=== PATIENT | male | born 1950 | race Caucasian/White ===

== ENCOUNTER 2023-09-09 12:01 | Emergency (ER) | payer MEDICARE, SELFPAY ==
[2023-09-09 12:10] VITALS: BP 120/64; PULSE 60; RESP 16; TEMP 36.3; O2SAT 99; BMI 27.6
--- NOTE | 2023-09-09 12:14 | DI.RAD.S_ITS ---
PROCEDURE: XR TIBIA FIBULA LT 2V INDICATIONS: fall, L sanchez on large rock, hematoma, LE swelling TECHNIQUE: 2 views of the tibia and fibula were acquired. COMPARISON: None. FINDINGS: Bones: No fractures or dislocations. No suspicious bony lesions. Soft tissues: No suspicious soft tissue calcifications or masses. IMPRESSION: No acute bony abnormality. Dictated by: Tenzin Pineda M.D. on 09/09/2023 at 12:54 Approved by: Tenzin Pineda M.D. on 09/09/2023 at 12:54
--- NOTE | 2023-09-09 13:28 | ED_ITS ---
HPI - Extremity Injury (Lower) <Maria Del Carmen Orozco PA-C - Last Filed: 09/09/23 13:37> General Chief Complaint: Extremity Injury, Lower Stated Complaint: L leg hematoma on sanchez Time Seen by Provider: 09/09/23 13:06 History of Present Illness HPI Narrative: Patient is a 73-year-old male who presents with a hematoma to the left anterior sanchez. He reports he was fishing in [place] last week when he slipped and his sanchez hit a large rock. His whole body weight was over his sanchez on the rock. It was initially uncomfortable but did not bother him for several days. He continued deficient then drove back home. Over the last several days, he is noted more swelling over his anterior sanchez but it was not bothering him. Today he got up to go more the lawn and it was quite painful. He takes no blood thinners. He is not been taking any medications for his symptoms. Review of Systems <Maria Del Carmen Orozco PA-C - Last Filed: 09/09/23 13:37> Review of Systems ROS Unobtainable: All systems reviewed & are unremarkable except as noted in HPI and below Exam <Maria Del Carmen Orozco PA-C - Last Filed: 09/09/23 13:37> Narrative Exam Narrative: GENERAL: 73 year old patient appears stated age. Well-developed patient, in no distress. NEURO: AOx3. HEAD: Atraumatic. Normocephalic. EYES: Pupils equal round and reactive. Extraocular motions intact. No scleral icterus. No injection or drainage. ENT: Nose without bleeding or purulent drainage. Airway patent. RESPIRATORY: No distress or increased work of breathing EXTREMITIES: Soft hematoma over anterior left sanchez, mildly fluctuant, not painful to palpation but painful with ambulation. 1+ edema distal to the injury, distal neurovascular exam intact. Initial Vital Signs Initial Vital Signs: Vital Signs Temperature 97.4 F L 09/09/23 12:10 Pulse Rate 60 09/09/23 12:10 Respiratory Rate 16 09/09/23 12:10 Blood Pressure 120/64 09/09/23 12:10 Pulse Oximetry 99 09/09/23 12:10 Oxygen Delivery Method Room Air 09/09/23 12:10 <Jose Ibarra MD - Last Filed: 09/15/23 08:08> Initial Vital Signs Initial Vital Signs: Vital Signs Temperature 97.4 F L 09/09/23 12:10 Pulse Rate 60 09/09/23 12:10 Respiratory Rate 16 09/09/23 12:10 Blood Pressure 120/64 09/09/23 12:10 Pulse Oximetry 99 09/09/23 12:10 Oxygen Delivery Method Room Air 09/09/23 12:10 Course <Maria Del Carmen Orozco PA-C - Last Filed: 09/09/23 13:37> Orders Ordered: ED Orders 09/09/23 12:14 XR tibia fibula LT 2V Stat Vital Signs Vital signs: Vital Signs - 8 hr 09/09/23 12:10 Temperature 97.4 F L Pulse Rate 60 Respiratory Rate 16 Blood Pressure 120/64 Pulse Oximetry 99 Oxygen Delivery Method Room Air <Jose Ibarra MD - Last Filed: 09/15/23 08:08> Orders Ordered: ED Orders 09/09/23 12:14 XR tibia fibula LT 2V Stat Vital Signs Vital signs: Vital Signs - 8 hr 09/09/23 12:10 Temperature 97.4 F L Pulse Rate 60 Respiratory Rate 16 Blood Pressure 120/64 Pulse Oximetry 99 Oxygen Delivery Method Room Air MDM - Extremity Injury (Lower) <Maria Del Carmen Orozco PA-C - Last Filed: 09/09/23 13:37> Imaging Data Extremity x-ray #1: Radiologist's Impression: PROCEDURE: XR TIBIA FIBULA LT 2V INDICATIONS: fall, L sanchez on large rock, hematoma, LE swelling TECHNIQUE: 2 views of the tibia and fibula were acquired. COMPARISON: None. FINDINGS: Bones: No fractures or dislocations. No suspicious bony lesions. Soft tissues: No suspicious soft tissue calcifications or masses. IMPRESSION: No acute bony abnormality. Dictated by: Tenzin Pineda M.D. on 09/09/2023 at 12:54 Approved by: Tenzin Pineda M.D. on 09/09/2023 at 12:54 [facility] Narrative Medical decision making narrative: Multiple etiologies for patient's symptoms considered including, but not limited to: Hematoma, fracture X-ray without evidence of fracture. Patient not on blood thinners and no history of excessive bleeding. Advised continued supportive care; consider ice, elevation, rest, gentle compression if it is more comfortable. Patient's symptoms improved over duration of stay with above-stated therapies. Findings and discharge diagnosis discussed with patient/family followed by verbalization of understanding Return precautions discussed with patient/family whom verbalize understanding of diagnosis and plan Discharge Plan Departure Patient Disposition: Home Clinical Impression: Hematoma of left lower leg Instructions: How To Perform RICE (Rest, Ice, Compress, Elevate) Activity Restrictions/Additional Instructions: *You have been diagnosed with lower extremity hematoma. As we discussed, there is no fracture on the x-ray. I would suggest rest, ice, elevation, gentle compression if it feels good and [id number] pain medications. The swelling may change shape over time and become more discolored, I would not be concerned unless the pain becomes more severe, you develop a fever or other symptoms develop. *What to do: *Please continue to take your regular medications as directed. [ ] New medication prescriptions sent to your pharmacy: [ ] [ ] New medication written as a paper prescription [x] No new medications given *Please follow up with your primary care provider in 2-3 days, call for an appointment. Let them know you were seen in the Emergency Department and that we ask that you be seen in follow up. We will electronically transmit a record of today's note if your PCP is in our system *If you do not have a primary care provider please contact the [facility] Resource line at [phone]. They will ask some questions about your medical history and help get you set up with a doctor in the community. *Return to Emergency Department if you should have any new, worsening or concerning symptoms, such as [fever greater than 101 F, shaking chills, worsening pain, persistent vomiting or other concerning symptoms]. Referrals: Jose Yang MD [Primary Care Provider] - Stand Alone Forms: Patient Portal/API ED Sign-out <Jose Ibarra MD - Last Filed: 09/15/23 08:08> [facility] I was immediately available in the department for consultation. ?This documentation has been reviewed and I agree with assessment and plan. Supervised by Jose Ibarra MD
[2023-09-09 13:42] VITALS: BP 115/63; PULSE 63; RESP 20; TEMP 36.4; O2SAT 99
== END 2023-09-09 13:44 | disposition home or self-care (01) ==
PROVIDERS: Emergency Provider Physician Assistant; PCP Family Medicine; Referring Provider Physician Assistant
DX: S80.12XA Contusion of left lower leg, initial encounter (principal); W01.198A Fall on same level from slipping, tripping and stumbling with subsequent striking against other object, initial encounter
CPT/HCPCS: 73590; 99281; 99283